=== PATIENT | male | born 1960 | race Native Hawaiian/Other Pacific Islander ===

== ENCOUNTER 2016-10-13 20:44 | Emergency (ER) | payer SELFPAY ==
[2016-10-13 20:57] VITALS: BP 139/89; PULSE 62; RESP 18; TEMP 99; O2SAT 99
--- NOTE | 2016-10-13 21:17 | ED PDOC ---
HPI: General Adult Time Seen by Provider: 10/13/16 20:58 Chief Complaint (Nursing): Bite Chief Complaint (Provider): Dog Bite/Scratch History Per: Patient History/Exam Limitations: no limitations Onset/Duration Of Symptoms: Hrs Have you had recent travel within the past 21 days to any of the following countries: [place], [place], [place] or [place]?: No Current Symptoms Are (Timing): Still Present Additional Complaint(s): Marcin Lokc, a 56 year old female, present to the ED with a dog bite/scratch. The patient states that earlier today he was either bitten or scratched by a dog on his right upper arm. The EMS state that a police report was file and they collected the owners contact information. As per oracle database analyst, the dogs shots are up to date. A mandarin piano regulator was used ([id number]). Past Medical History Reviewed: Historical Data, Nursing Documentation, Vital Signs Vital Signs: Last Vital Signs Temp 99 F 10/13/16 20:55 Pulse 62 10/13/16 20:55 Resp 18 10/13/16 20:55 BP 139/89 10/13/16 20:55 Pulse Ox 99 10/13/16 21:24 - Medical History PMH: No Chronic Diseases - Surgical History Surgical History: No Surg Hx - Family History Family History: States: No Known Family Hx - Home Medications Home Medications: Ambulatory Orders Medication Instructions Recorded Amoxicillin/Potassium Clav 1 each PO BID #20 tablet 10/13/16 [Augmentin 500-125 Tablet] - Allergies Allergies/Adverse Reactions: Allergies Allergy/AdvReac Type Severity Reaction Status Date / Time No Known Allergies Allergy Verified 10/13/16 20:57 Review of Systems Musculoskeletal: Positive for: Arm Pain Skin: Positive for: Other (Dog bite to right upper arm.) Physical Exam - Reviewed Nursing Documentation Reviewed: Yes Vital Signs Reviewed: Yes - Physical Exam Appears: Positive for: Non-toxic, No Acute Distress Head Exam: Positive for: ATRAUMATIC, NORMOCEPHALIC Skin: Positive for: Normal Color, Warm, Dry Extremity: Positive for: Other (Very superficial linear abrasion to right upper arm; no active bleeding.). Negative for: Deformity, Swelling Neurologic/Psych: Positive for: Alert, Oriented - ECG O2 Sat by Pulse Oximetry: 99 (RA) Pulse Ox Interpretation: Normal - Progress ED Course And Treament: Wound was irrigated heavily with NS and DSD applied. Medical Decision Making Medical Decision Makin:58 Initial Impression: 56 year old female presenting to the ED with a dog bite. Scribe Attestation Documented by Andie Kirkpatrick acting as a scribe for Harmeet Young PA-C. Provider Attestation All medical record entries made by the Scribe were at my direction and personally dictated by me. I have reviewed the chart and agree that the record accurately reflects my personal performance of the history, physical exam, medical decision making, and the department course for this patient. I have also personally directed, reviewed, and agree with the discharge instructions and disposition. Disposition - Clinical Impression Clinical Impression: Dog bite - Patient ED Disposition Is Patient to be Admitted: No - Disposition Referrals: [facility] [Outside] Disposition: Routine/Home Disposition Time: 21:46 Condition: STABLE Prescriptions: Amoxicillin/Potassium Clav [Augmentin 500-125 Tablet] 1 each PO BID #20 tablet Instructions: Animal Bite (ED)
[2016-10-13] MEDS ORDERED: TDAP Vaccine 0.5 mL Syr IM ONE (21:25)
== END 2016-10-13 22:27 | disposition home or self-care (01) ==
LOC: H.ER 20:44
DX: T14.8 Other injury of unspecified body region (principal); W54.0XXA Bitten by dog, initial encounter; Y92.89 Other specified places as the place of occurrence of the external cause